=== PATIENT | female | born 1960 | race Two or more races ===

== ENCOUNTER 2024-11-08 08:50 | Outpatient (AMB) | payer MEDICARE, MEDICAID, SELFPAY ==
--- NOTE | 2024-11-08 09:19 | PD.ORTHCLVIS ---
Vital signs 11/08/24 09:20 Height 1.63 m Height Method Stated Weight 79.974 kg Weight Measurement Method Standing Scale BMI 30.2 BP 175/80 H Blood Pressure Source Automatic Cuff Blood Pressure Location Left Upper Arm Position Sitting Respiration 18 Pulse 90 Pulse Source Monitor Temp 98.0 F Temp Source Temporal Artery Scan Pulse Oximetry (%) 97 Oxygen Delivery Method Room Air Med/Allergies Allergies & Medications Allergies No Known Allergies Allergy (Verified 11/08/24 09:21) Medication Reconciliation Unobtainable 11/08/24 [History Confirmed 11/08/24] Exam Exam Breathing is nonlabored. Patient has a normal mood and affect. Bilateral extremities were evaluated and demonstrates sensation intact to light touch. Palpable pedal pulses are present. No significant edema is present. Bilateral hips were examined. The patient has no pain with log roll of the hips. Internal rotation to 30 degrees and external rotation to 30 degrees is painless. Negative FADIR. Left knee was examined today. Incision is clean dry intact and range of motion is 0 to 100 degrees The right knee was also examined. The right knee is in varus alignment. Range of motion from 0-115 degrees. Knee is stable to varus and valgus as well as AP translation with <5mm. Patient has a negative McMurrays. There is no pain with patellofemoral compression and no crepitus noted. The knee is tender to palpation medially. X-rays demonstrate complete obliteration of the medial joint space with osteophytes and varus deformity Assessment and Plan Problem List (1) Arthritis of right knee: Status: Acute Plan: Patient is a 64-year-old female with right knee pain and severe right knee arthritis. We discussed different treatment options. She has significant arthritis of the right knee and has failed conservative treatment. She has failed anti-inflammatories and physical therapy. We thus discussed total knee replacement as a reasonable option on the right. She had her left knee replaced and is insistent that there is no metal in it. We will get x-rays of this as well as I am pretty sure she had a total knee replacement. The nature and purpose of the total knee replacement, alternative method(s) of treatment, the material risks involved, and the possibility of complications were fully explained to the patient. The patient does NOT have any of the following contraindications to TKA: - Active infection of the knee joint, OR - Active systemic bacteremia, OR - Active skin infection or open wound at surgical site, OR - Neuropathic arthritis, OR - Severe, rapidly progressive neurological disease, OR - Severe medical condition that makes risks of surgery outweigh the potential benefit The patient was told the most common risks and complications associated with a total knee replacement include, but are not limited to: blood clots in the leg, fatal pulmonary embolism, dislocation of the prosthesis, intraoperative and postoperative fractures of the femur or tibia, infection, failure of the prosthesis or grafting materials, complications from anesthesia, reactions to blood transfusions, postoperative leg length inequality, instability of the knee replacement, nerve damage or injury, vascular injury, delayed wound healing, infection, other injury or even . In addition, there are risks associated with anesthesia given during this operation. Also, the patient was told that after undergoing a total knee replacement there may still be persistent pain or disability. The patient was informed that the success of this operation in part depends upon the mechanical devices which are going to be implanted and that these devices can fail or malfunction, and may need to be repaired or replaced and there are no guarantees as to the longevity of this device or its parts and that it or its parts could fail prematurely. The patient was also notified that during the course of surgery, there may be a need to use bone graft from donors, and that any bone graft used will be carefully screened for communicable diseases, including AIDS, hepatitis, Manny-Creutzfeldt, or other diseases, but despite the screening procedures, there is a small chance that they could contract one of these diseases. Finally, the patient was asked to follow completely and fully with all advice and recommended treatments, and that recovery and ultimate outcome are affected by their compliance with recommended treatment. We discussed the risks, benefits and treatment alternatives, and the patient is interested in proceeding with surgery. We will try to set this up as expeditiously as possible. 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 ([id number]) MA Intake Visit Data Collection New Patient or Established: New Patient (never been to [facility]) Reason for Visit:: RIGHT KNEE PAIN Seen by Clinical Staff ONLY (RN/MA): No Gun Synchronizer Required: Yes PCP or OBGYN visit in last 3 months: Yes Hx Now: No Do You Feel Safe at Home: Yes Authorities Contacted: N/A Questionairres Past Medical History Past Medical History Have you ever been diagnosed with any of the following: Cardiology Problems Hypertension: Yes Respiratory Problems Smoking: No Smoking Exposure: No Surgical History Total Knee Replacement: Yes (LEFT KNEE 30 YEARS AGO) Subjective Visit Visit for: new patient and knee (RIGHT) Immunization / Flu Flu Vaccine in the Last 12 Months: No Flu Vaccine Exclusion Criteria: Refused by Patient History of Present Illness Chief complaint: right knee pain Date of injury / onset of symptoms: 20 YEARS Patient is a 64-year-old female with right knee pain has been ongoing for over 10 years. She has tried anti-inflammatories and physical therapy. The pain is affecting her quality life and happiness. She had her left knee replaced 30 years ago in [place]. She reports that the left knee does not hurt at all. She reports the right knee is limiting her and she wants to get surgery. Personal History Occupation: RETIRED Pain Pain level (0-10): 9 Pain duration: ALL DAY Pain location: inside (medial) and anterior Pain quality: sharp, dull and aching Pain timing: night, increases with activity and stairs Associated signs & symptoms: stiffness Ambulatory data Ambulatory device: none Treatments Improvement with previous injections: No Number of Physical Therapy sessions: 10 Improvement with PT: Yes Improvement with NSAIDS: no Review of Systems Review of Systems: All systems negative unless otherwise noted in HPI.
[2024-11-08 09:20] VITALS: BP 175/80; PULSE 90; RESP 18; TEMP 36.7; O2SAT 97; BMI 30.2
--- NOTE | 2024-11-08 09:24 | XR_ITS ---
Examination: Bilateral knees 2 views Right lateral knee left lateral knee 2 views Bilateral axial knees single view TECHNIQUE: Bilateral AP knees standing single view, bilateral PA knees standing single view flexion Standing right lateral knee left lateral knee 2 views Bilateral axial knees single view Exam date and time: November 08, 2024 0954 hours INDICATIONS: Right knee pain 20 years. FINDINGS: Prominent osteopenia Severe right knee tricompartment osteoarthritis including [id number] narrowing medial joint space No fracture Total left knee arthroplasty with satisfactory alignment IMPRESSION: Severe right knee tricompartment osteoarthritis
== END 2024-11-08 09:31 | disposition home or self-care (01) ==
LOC: HODSRG 08:50
PROVIDERS: PCP Family Medicine; Referring Provider Family Medicine; Supervising Provider Orthopaedic Surgery Adult Reconstructive Orthopaedic Surgery; Visit Provider Orthopaedic Surgery Adult Reconstructive Orthopaedic Surgery
DX: M17.11 Unilateral primary osteoarthritis, right knee (principal); Z96.652 Presence of left artificial knee joint; I10 Essential (primary) hypertension
CPT/HCPCS: 73564; 99204; G0463

== ENCOUNTER 2024-12-01 14:34 | Outpatient (AMB) | payer MEDICARE, MEDICAID, SELFPAY ==
[2024-12-01 14:58] VITALS: BP 161/80; PULSE 72; RESP 18; TEMP 36.7; O2SAT 97; BMI 29.9
--- NOTE | 2024-12-01 14:58 | PD.ORTHCLVIS ---
Vital signs 12/01/24 14:58 Height 1.63 m Height Method Stated Weight 79.464 kg Weight Measurement Method Standing Scale BMI 29.9 BP 161/80 H Blood Pressure Source Automatic Cuff Blood Pressure Location Right Upper Arm Position Sitting Respiration 18 Pulse 72 Pulse Source Monitor Temp 98.1 F Temp Source Temporal Artery Scan Pulse Oximetry (%) 97 Oxygen Delivery Method Room Air Med/Allergies Allergies & Medications Allergies No Known Allergies Allergy (Verified 12/01/24 14:59) Medication Reconciliation Unobtainable 11/08/24 [History Confirmed 12/01/24] Exam Exam Breathing is nonlabored. Patient has a normal mood and affect. Bilateral extremities were evaluated and demonstrates sensation intact to light touch. Palpable pedal pulses are present. No significant edema is present. Bilateral hips were examined. The patient has no pain with log roll of the hips. Internal rotation to 30 degrees and external rotation to 30 degrees is painless. Negative FADIR. Left knee was examined today. Incision is clean dry intact and range of motion is 0 to 100 degrees The right knee was also examined. The right knee is in varus alignment. Range of motion from 0-115 degrees. Knee is stable to varus and valgus as well as AP translation with <5mm. Patient has a negative McMurrays. There is no pain with patellofemoral compression and no crepitus noted. The knee is tender to palpation medially. X-rays demonstrate complete obliteration of the medial joint space with osteophytes and varus deformity Assessment and Plan Problem List (1) Arthritis of right knee: Status: Acute Plan: Patient is a 64-year-old female with right knee pain and severe right knee arthritis. We discussed different treatment options. She has significant arthritis of the right knee and has failed conservative treatment. She has failed anti-inflammatories and physical therapy. We thus discussed total knee replacement as a reasonable option on the right. The nature and purpose of the total knee replacement, alternative method(s) of treatment, the material risks involved, and the possibility of complications were fully explained to the patient. The patient does NOT have any of the following contraindications to TKA: - Active infection of the knee joint, OR - Active systemic bacteremia, OR - Active skin infection or open wound at surgical site, OR - Neuropathic arthritis, OR - Severe, rapidly progressive neurological disease, OR - Severe medical condition that makes risks of surgery outweigh the potential benefit The patient was told the most common risks and complications associated with a total knee replacement include, but are not limited to: blood clots in the leg, fatal pulmonary embolism, dislocation of the prosthesis, intraoperative and postoperative fractures of the femur or tibia, infection, failure of the prosthesis or grafting materials, complications from anesthesia, reactions to blood transfusions, postoperative leg length inequality, instability of the knee replacement, nerve damage or injury, vascular injury, delayed wound healing, infection, other injury or even . In addition, there are risks associated with anesthesia given during this operation. Also, the patient was told that after undergoing a total knee replacement there may still be persistent pain or disability. The patient was informed that the success of this operation in part depends upon the mechanical devices which are going to be implanted and that these devices can fail or malfunction, and may need to be repaired or replaced and there are no guarantees as to the longevity of this device or its parts and that it or its parts could fail prematurely. The patient was also notified that during the course of surgery, there may be a need to use bone graft from donors, and that any bone graft used will be carefully screened for communicable diseases, including AIDS, hepatitis, Manny-Creutzfeldt, or other diseases, but despite the screening procedures, there is a small chance that they could contract one of these diseases. Finally, the patient was asked to follow completely and fully with all advice and recommended treatments, and that recovery and ultimate outcome are affected by their compliance with recommended treatment. We discussed the risks, benefits and treatment alternatives, and the patient is interested in proceeding with surgery. We will try to set this up as expeditiously as possible. Advanced Care Planning Discussion Advance care planning discussed with:: patient Office Procedures GNS Level of Care Nursing/Assessment Patient Status: Established Patient Nursing Assessment/Reassesment: Medication Reconciliation, Update PMH in EMR and Vital Signs Coordination of Care: Complex Care and Chronic Disease 1-5, Education Complex Pt/Fam, Consent,records obtained, informed consent, 1 Ins Authorization, Results/Orders obtained and Staff clarify orders Special Needs: Language special needs Established Patient Charge Established Patient Point Assignment: 110 Established Patient Point Charge: EP Level 3 (80-115) MA Intake Visit Data Collection New Patient or Established: Established Patient (seen at [facility] within 3 years) Reason for Visit:: F/U KNEE SURGERY Seen by Clinical Staff ONLY (RN/MA): No Verbal consent obtained for Telemed visit?: No Director Digital Sales Required: Yes PCP or OBGYN visit in last 3 months: Yes Hx Now: No Do You Feel Safe at Home: Yes Authorities Contacted: N/A Questionairres Past Medical History Past Medical History Have you ever been diagnosed with any of the following: Cardiology Problems Hypertension: Yes Respiratory Problems Smoking: No Smoking Exposure: No Surgical History Total Knee Replacement: Yes (LEFT KNEE 30 YEARS AGO) Subjective Visit Visit for: follow up visit Immunization / Flu Flu Vaccine in the Last 12 Months: No Flu Vaccine Exclusion Criteria: No Exclusion Criteria History of Present Illness Chief complaint: F/U KNEE SURGERY Date of injury / onset of symptoms: 20 YEARS Patient is a 64-year-old female with right knee pain has been ongoing for over 10 years. She has tried anti-inflammatories and physical therapy. The pain is affecting her quality life and happiness. She had her left knee replaced 30 years ago in [place]. She reports that the left knee does not hurt at all. She reports the right knee is limiting her and she wants to get surgery. Personal History Occupation: RETIRED Red flag PMH: BMI BMI Counceling provided: Yes Pain Pain level (0-10): 9 Pain duration: ALL DAY Pain location: inside (medial), outside (lateral), anterior and posterior Pain quality: sharp, dull and aching Pain timing: increases with activity Associated signs & symptoms: stiffness Ambulatory data Ambulatory device: cane Treatments Improvement with previous injections: No Number of Physical Therapy sessions: 10 Improvement with PT: No Improvement with NSAIDS: no Review of Systems Review of Systems: All systems negative unless otherwise noted in HPI.
== END 2024-12-01 15:18 | disposition home or self-care (01) ==
LOC: HODSRG 14:34
PROVIDERS: PCP Family Medicine; Referring Provider Family Medicine; Supervising Provider Orthopaedic Surgery Adult Reconstructive Orthopaedic Surgery; Visit Provider Orthopaedic Surgery Adult Reconstructive Orthopaedic Surgery
DX: M17.11 Unilateral primary osteoarthritis, right knee (principal); M25.561 Pain in right knee; I10 Essential (primary) hypertension
CPT/HCPCS: 99213; G0463

== ENCOUNTER → 2024-12-16 | Outpatient (CLI) | payer MEDICARE, MEDICAID, SELFPAY ==
--- NOTE | 2024-12-16 10:47 | XR_ITS ---
Examination: CT right lower extremity, without contrast. 2-D sagittal reconstructions. 2-D coronal reconstructions. 3-D reconstructions. Date and time of exam:December 16, 2024 1255 hours INDICATIONS: Right knee pain beginning several years ago CTDI: vol (mGy):12.6 DLP: (mGycm):927 Technique: Multiple 1.25 mm axial sections of the right lower extremity without intravenous contrast have been obtained. 2-D sagittal and coronal reconstructions have been obtained. 3-D reconstructions have been obtained. Low dose protocols were performed. One or more of the following dose reduction techniques were used; automated exposure control, adjustment of the mA and/or KV according to patient size, use of iterative reconstruction technique. Findings: Moderate osteopenia Mild to moderate narrowing right hip joint No right hip fracture Advanced right knee tricompartment osteoarthritis Severe narrowing medial joint space right knee No fracture No patellar dislocation IMPRESSION: Advanced right knee tricompartment osteoarthritis
== END | disposition home or self-care (01) ==
PROVIDERS: PCP Family Medicine; Referring Provider Orthopaedic Surgery Adult Reconstructive Orthopaedic Surgery; Visit Provider Orthopaedic Surgery Adult Reconstructive Orthopaedic Surgery
DX: M17.11 Unilateral primary osteoarthritis, right knee (principal)
CPT/HCPCS: 73700

== ENCOUNTER 2025-01-02 06:55 | Day surgery (SDC) | payer MEDICARE, MEDICAID, SELFPAY ==
--- NOTE | 2024-12-30 06:20 | EKG_ITS ---
[facility] Test Date: 2024-12-30 Pat Name: MAR BYRD Department: Room: - Gender: Female Control Clerk: [facility] : 1960 Requested By: Collin Andres Order Number: [id number] Reading MD: Collin Andres Measurements Intervals [place] Rate: 79 P: 29 IA: 182 QRS: 30 QRSD: 97 T: 30 QT: 354 QTc: 408 Interpretive Statements SINUS RHYTHM No previous ECG available for comparison /store/S0/[id number]/[id number].pdf
[2024-12-30 09:02] VITALS: BMI 31.1
[2024-12-30 10:50] LABS: Basophils % (Auto) 0 % (0-2.5); Eosinophils # (Auto) 0.1 Thou/mm3 (0.0-0.5); Eosinophils % (Auto) 2 % (0-10); Hematocrit 39.1 % (36.0-46.0); Hemoglobin 13.1 g/dL (12.0-16.0); Immature Granulocytes % (Auto) 0 % (0-0); Immature Granulocytes Auto 0.01 Thou/mm3 (0.00-0.00); Lymphocytes # (Auto) 2.5 Thou/mm3 (1.0-4.8); Lymphocytes % (Auto) 34 % (10-50); Mean Corpuscular HGB Conc 33.5 g/dl (31.0-37.0); Mean Corpuscular Hemoglobin 28.4 pg (25.0-35.0); Mean Corpuscular Volume 85 fL (80-100); Monocytes # (Auto) 0.5 Thou/mm3 (0.0-0.8); Monocytes % (Auto) 7 % (0-12); Neutrophils # (Auto) 4.1 Thou/mm3 (1.8-7.7); Neutrophils % (Auto) 57 % (37-80); Nucleated Red Blood Cell % 0 /100 WBC (0); Platelet Count 236 Thou/mm3 (140-440); RDW Standard Deviation 43.3 fL (36.4-46.3); Red Blood Count 4.61 Miln/mm3 (4.00-5.20); White Blood Count 7.2 Thou/mm3 (3.6-11.0)
[2024-12-30 10:54] LABS: Prothrombin Time 11.1 Seconds (9.0-12.2)
[2024-12-30 11:00] LABS: Alanine Aminotransferase 18 U/L (10-49); Albumin, Serum 4.3 gm/dL (3.4-4.8); Albumin/Globulin Ratio 1.6 (1.2-2.2); Alkaline Phosphatase 154 U/L (46-116); Anion Gap 11 (7-16); Aspartate Amino Transferase 15 U/L (0-34); BUN/Creatinine Ratio 25 Ratio (12-20); Bilirubin,Total 0.4 mg/dL (0.3-1.2); Blood Urea Nitrogen 15 mg/dL (9-23); Calcium 10.3 mg/dL (8.3-10.6); Calcium (Corrected) 10.3 mg/dL (8.5-10.1); Carbon Dioxide 24.8 mMol/L (20.0-31.0); Chloride 107 mMol/L (98-107); Creatinine (Component) 0.6 mg/dL (0.6-1.3); Estimated Creatinine Clearance 92.1 mL/min (>60); Globulin 2.7 gm/dL (2.3-3.5); Glucose 113 mg/dL (74-106); Osmolality,Calculated 286 (275-295); Potassium 3.8 mMol/L (3.4-5.1); Sodium 143 mMol/L (136-145); eGFR > 60 See Note
[2025-01-02] VITALS (10 sets, daily range): BP systolic 110–169; BP diastolic 60–88; PULSE 67–89; RESP 13–20; TEMP 36.6–37; O2SAT 95–100; BMI 30.9
[2025-01-02] MEDS: RINGERS LACTATED 1000 ML 1,000 ML 20 ML IV (07:46)
[2025-01-02] MEDS: PREGABALIN 75 MG CAPSULE PO (07:50)
[2025-01-02] MEDS: MELOXICAM 7.5 MG TABLET PO (07:51)
[2025-01-02] MEDS: ACETAMINOPHEN 325 MG TABLET 650 MG PO (07:51)
--- NOTE | 2025-01-02 07:52 | SUR.PREOP ---
Patient expressed gratitude for prayer before their procedure
--- NOTE | 2025-01-02 11:16 | PD.SUROPNT ---
Date of Procedure 01/02/25 Pre Op Diagnosis right knee osteoarthritis Post Op Diagnosis right knee osteoarthritis Procedure right total knee replacement ruben Findings full thickness cartilage loss and osteophytes Procedure Description Indication: The patient is a 64 year old who has a long history of right knee pain. X-rays show degenerative arthritis involving the knee. Over the past several years the patient has had increasing pain, progressive limitation in function. He has failed conservative measures including activity modification, physical therapy, injections, anti-inflammatories, and assistive devices. After a lengthy discussion of the risks and benefits, the patient presents now for total knee replacement. The nature and purpose of the total knee replacement, alternative method(s) of treatment, the material risks involved, and the possibility of complications were fully explained to the patient. The patient was told the most common risks and complications associated with a total knee replacement include, but are not limited to blood clots in the leg, fatal pulmonary embolism, dislocation of the prosthesis, intraoperative and postoperative fractures of the femur or tibia, infection, failure of the prosthesis or grafting materials, complications from anesthesia, reactions to blood transfusions, postoperative leg length inequality, instability of the knee replacement, nerve damage or injury, vascular injury, delayed wound healing, infections, other injury or even . In addition, there are risks associated with anesthesia given during this operation, temporary or permanent numbness on the skin lateral to the incision can be a complication unique to total knee surgery, and kneeling can be painful after knee replacement surgery. Also, the patient was told that after undergoing a total knee replacement there may still be pain or disability. We discussed with the patient that we will be using a robot-assisted technology. We discussed that there is a possibility of converting to manual instrumentation. The patient was informed that the success of this operation in part depends upon the mechanical devices which are going to be implanted and that these devices can fail or malfunction, and may need to be repaired or replaced and there are no guarantees as to the longevity of this device or its part and that it or its parts could fail prematurely. Finally, the patient was asked to follow completely and fully with all advice and recommended treatments, and that recovery and ultimate outcome are affected by their compliance with recommended treatment. Surgical technique: Patient was marked and consented in the pre-operative area. The patient was brought to the operating room and placed on the operating table in a supine position. Prior to positioning, a timeout procedure was performed between the surgeon, the anesthesiologist, and the nursing staff where the patient and the operative side were identified and confirmed. After adequate general anesthetic was obtained, the right lower extremity was prepped and draped in the usual sterile fashion. A weight based dose of Cefazolin were administered within 1 hour prior to incision. The robot was preregistered and calirated before the incision. The extremity was exsanguinated with an esmarch badge and tourniquet inflated to 250mmHg. A midline incision was made. A median parapatellar arthrotomy was made. The patella was subluxed laterally. A medial release was performed to expose the medial tibia. His femoral and tibial pins were placed through an intra incisional manner for both cases. Every effort was made to ensure that the distalmost aspect of the pin was hung in the second cortex. The arrays were then tightened several times to ensure that it was fixed for the remainder of the case. Both femoral and tibial checkpoints were then placed. We then went through the registration process of the bone. We then assessed the knee deformity and attempted to correct it. We also used the robot to aid in judging laxity in both extension and flexion. Final based on laxity and alignment we changed the preoperative assessment to obtain proper proper implant positioning and to correct deformity. Attention was then placed to the tibia. We made a tibial cut using the robot ensuring that both the MCL and the patella tendon were protected with retractors. We then went to the femur and made the posterior cut followed by the anterior cut and the anterior chamfer. The bone was then removed and we made a distal femur cut and a posterior chamfer cut. We verified all cuts. A trial reduction was performed with a size 4 femoral component and a size 3 keeled tibial component. The patella was cut and sized to a [33]. The patella tracked centrally, and no lateral retinacular release was necessary. The trial implants were removed. The arrays, pins, and checkpoints were all removed. We performed a verification that all pins were removed. The cut bone surfaces were lavaged. A size 4 right femoral component, a size 3 keeled tibial component, and a size 33 patella were impacted into position. The knee was felt to be well balanced in the sagittal and coronal plane. The final 3x11mm cruciate-substituting articular insert was impacted into the tibial tray. The knee was brought out to full extension, flexed up to 120 degrees. It was stable to varus and valgus stress and appropriately balanced in flexion and extension. The wounds were copiously irrigated following deflation of tourniquet. The medial retinaculum was reapproximated with #1 vicryl and quill. The subcutaneous tissues were closed with 0 and 2-0 interrupted Vicryl. The skin was closed with 3-0 Monofilament V loc suture. A sterile dressing was applied. The patient was transferred to a bed and brought to recovery in stable condition. The patient tolerated the procedure well. There were no intraoperative complications. Sponge and needle counts were correct times 2. As the attending surgeon, I attjayne I was present and performed the entire operation. Grafts/Implants Size 4 CR Femur Size 3 Tibia 11mm poly CS 33mm patella Anesthesia spinal Implants dorian Pathology / specimen None Pathology comment: none Estimated Blood Loss 150 Condition Stable Disposition same day Surgeon Jerrod Manjarrez MD Surgical Staff Operation Date: 01/02/25 10:45 Case Staff Anesthesiologist: Noah Cardoza RN First Assistant: Jeane Martinez
--- NOTE | 2025-01-02 11:18 | XR_ITS ---
Examination: Right knee 2 views Technique one AP lateral right knee 2 views Date and time: January 02, 2025 1224 hours INDICATIONS: Postop knee replacement FINDINGS: No right knee arthroplasty. Satisfactory alignment No fracture IMPRESSION: Total right knee arthroplasty with satisfactory alignment
--- NOTE | 2025-01-02 11:40 | SUR.PHASEI ---
pt arrived to PACU via gurney with oral airway present, breathing unlabored, dressing to right lower extremity clean, dry, and intact, circulation to bilateral toes WNL, report from Adria FORTUNE and Dr Cardoza
--- NOTE | 2025-01-02 12:05 | SUR.PHASEI ---
pt tolerating oral fluids without difficulty swallowing or n/v
[2025-01-02] MEDS: ACETAMINOPHEN IVPB 1,000 MG/100 ML VIAL 250 MG IV (12:15)
--- NOTE | 2025-01-02 12:24 | SUR.PHASEII ---
Xray at bedside
--- NOTE | 2025-01-02 12:30 | SUR.PHASEII ---
xray complete, uJan Physical Therapist notified that pt is ready.
--- NOTE | 2025-01-02 12:46 | SUR.PHASEII ---
Juan Physical Therapist at bedside
--- NOTE | 2025-01-02 13:25 | SUR.PHASEII ---
pt awake, alert, able to follow commands, breathing unlabored, dressing to lower right extremity clean, dry, and intact, pulses to bilateral dorsalis pedis present/strong/equal, discharge instructions given using telephone japanese interpreter Rocío ID#[id number] questions answered, pt and family verbalize understanding of discharge isntructions, pt and family informed when Tylenol dose was given and when to take next dose-family and pt verbalize understanding, pt able to ambulate with steady gait and cleared by physical therapist for discharge home, pt discharged via wheelchair with all belongings and copies of discharge paperwork.
== END 2025-01-02 13:25 | disposition home or self-care (01) ==
PROVIDERS: Anesthesiology; Referring Provider Orthopaedic Surgery Adult Reconstructive Orthopaedic Surgery; Visit Provider Orthopaedic Surgery Adult Reconstructive Orthopaedic Surgery
PROC: (CPT 27447; principal; 2025-01-02 10:45)
DX: M17.11 Unilateral primary osteoarthritis, right knee (principal); M25.761 Osteophyte, right knee; Z01.810 Encounter for preprocedural cardiovascular examination
CPT/HCPCS: 27447; 20985; 36415; 73560; 80053; 85025; 85610; 85730; 93005; 97162; A4217; C1713; C1776; J0131; J0690; J1100; J1885; J2250; J2405; J2704; J2795; J3010; J3490; J7120; J7999; A4648; A4649; A9270

== ENCOUNTER 2025-01-17 10:34 | Outpatient (AMB) | payer MEDICARE, MEDICAID, SELFPAY ==
--- NOTE | 2025-01-17 11:09 | PD.ORTHCLVIS ---
Vital signs 01/17/25 11:10 Height 1.6 m Height Method Stated Weight 78.046 kg Weight Measurement Method Standing Scale BMI 30.4 BP 178/69 H Blood Pressure Source Automatic Cuff Blood Pressure Location Left Upper Arm Position Sitting Respiration 18 Pulse 98 Pulse Source Monitor Temp 97.8 F Temp Source Temporal Artery Scan Pulse Oximetry (%) 95 Oxygen Delivery Method Room Air Med/Allergies Allergies & Medications Allergies No Known Allergies Allergy (Verified 01/17/25 11:10) Medication Reconciliation amlodipine 5 mg tablet 5 mg PO QDAY 12/30/24 [History Confirmed 01/17/25] losartan 100 mg tablet 100 mg PO QDAY 12/30/24 [History Confirmed 01/17/25] acetaminophen 500 mg tablet (Acetaminophen Extra Strength) 1,000 mg (2 x 500 mg) PO Q6H PRN pain #90 tabs 01/02/25 [Rx Confirmed 01/17/25] aspirin 81 mg tablet,delayed release 81 mg PO BID #60 tabs 01/02/25 [Rx Confirmed 01/17/25] doxycycline hyclate 100 mg tablet 100 mg PO BID #14 tabs 01/02/25 [Rx Confirmed 01/17/25] gabapentin 300 mg capsule 300 mg PO .qhs #30 caps 01/02/25 [Rx Confirmed 01/17/25] oxycodone 5 mg tablet 5 mg PO Q6H PRN pain #28 tabs 01/02/25 [Rx Confirmed 01/17/25] sennosides 8.6 mg-docusate sodium 50 mg tablet (Senna-S) 1 tab-cap PO QDAY #30 tabs 01/02/25 [Rx Confirmed 01/17/25] Exam Exam Breathing is nonlabored. Patient has a normal mood and affect. Bilateral extremities were evaluated and demonstrates sensation intact to light touch. Palpable pedal pulses are present. No significant edema is present. Bilateral hips were examined. The patient has no pain with log roll of the hips. Internal rotation to 30 degrees and external rotation to 30 degrees is painless. Negative FADIR. Left knee was examined today. Incision is clean dry intact and range of motion is 0 to 100 degrees Right knee incisions clean dry intact. Range of motion 0 to 105 degrees Assessment and Plan Problem List (1) Arthritis of right knee: Status: Acute Plan: Patient is a 64-year-old female with right knee pain and severe right knee arthritis. She is status post right total knee replacement and is doing well. She has minimal pain (2) Status post total right knee replacement: Status: Acute Advanced Care Planning Discussion Advance care planning discussed with:: patient Office Procedures GNS Level of Care Nursing/Assessment Patient Status: Established Patient Nursing Assessment/Reassesment: Medication Reconciliation, Update PMH in EMR and Vital Signs Coordination of Care: Complex Care and Chronic Disease 1-5, Education Complex Pt/Fam, Consent,records obtained, informed consent, Results/Orders obtained and Staff clarify orders Special Needs: Language special needs Established Patient Charge Established Patient Point Assignment: 95 Established Patient Point Charge: Level 3 (80-115) MA Intake Visit Data Collection New Patient or Established: Established Patient (seen at [facility] within 3 years) Reason for Visit:: FOLLOW UP Seen by Clinical Staff ONLY (RN/MA): No Client Services Associate Required: Yes PCP or OBGYN visit in last 3 months: Yes Hx Now: No Do You Feel Safe at Home: Yes Authorities Contacted: N/A Questionairres Past Medical History Past Medical History Have you ever been diagnosed with any of the following: Neurological Problems Seizures: No Cardiology Problems Congestive Heart Failure: No Hypertension: Yes Varicose Veins: Yes Respiratory Problems Chronic Obstructive Pulmonary Disease (COPD): No Smoking: No Smoking Exposure: No Stomache/Intestinal Problems Hepatitis: No Genital/Urinary Problems Renal Disease: No Reproductive Problems Previous Pregnancies: Yes (5) Musculoskeletal Problems Arthritis: Yes Endocrine Problems Diabetes Mellitus Type 1: No Diabetes Mellitus Type 2: No Other Problems Hospitalization: No Shingles: No Blood Transfusions: No Anesthesia Reactions: No Cancer: No Surgical History Total Knee Replacement: Yes (LEFT KNEE 30 YEARS AGO) Hysterectomy: Yes Subjective Visit Visit for: follow up visit Immunization / Flu Flu Vaccine in the Last 12 Months: No Flu Vaccine Exclusion Criteria: No Exclusion Criteria History of Present Illness Chief complaint: F/U KNEE SURGERY Date of injury / onset of symptoms: 20 YEARS Patient is a 64-year-old female with right knee pain has been ongoing for over 10 years. She is status post right total knee replacement and is very happy. She is 2 weeks postop Personal History Occupation: RETIRED Red flag PMH: BMI BMI Counceling provided: Yes Pain Pain level (0-10): 9 Pain duration: ALL DAY Pain location: inside (medial), outside (lateral), anterior and posterior Pain quality: sharp, dull and aching Pain timing: increases with activity Associated signs & symptoms: stiffness Ambulatory data Ambulatory device: cane and walker Treatments Improvement with previous injections: No Number of Physical Therapy sessions: 10 Improvement with PT: No Improvement with NSAIDS: no Review of Systems Review of Systems: All systems negative unless otherwise noted in HPI.
[2025-01-17 11:10] VITALS: BP 178/69; PULSE 98; RESP 18; TEMP 36.6; O2SAT 95; BMI 30.4
== END 2025-01-17 11:16 | disposition home or self-care (01) ==
PROVIDERS: PCP Family Medicine; Referring Provider Family Medicine; Supervising Provider Orthopaedic Surgery Adult Reconstructive Orthopaedic Surgery; Visit Provider Orthopaedic Surgery Adult Reconstructive Orthopaedic Surgery
DX: M17.11 Unilateral primary osteoarthritis, right knee (principal); M25.561 Pain in right knee; Z96.651 Presence of right artificial knee joint; I10 Essential (primary) hypertension
CPT/HCPCS: 99213; G0463

== ENCOUNTER 2025-02-14 09:23 | Outpatient (AMB) | payer MEDICARE, MEDICAID, SELFPAY ==
--- NOTE | 2025-02-14 09:28 | ORTHONT_ITS ---
Vital signs 02/14/25 09:29 Height 1.6 m Height Method Stated Weight 78.953 kg Weight Measurement Method Standing Scale BMI 30.8 BP 156/69 H Blood Pressure Source Automatic Cuff Blood Pressure Location Left Upper Arm Position Sitting Respiration 18 Pulse 83 Pulse Source Monitor Temp 98.3 F Temp Source Temporal Artery Scan Pulse Oximetry (%) 96 Oxygen Delivery Method Room Air Med/Allergies Allergies & Medications Allergies No Known Allergies Allergy (Verified 02/14/25 09:29) Medication Reconciliation amlodipine 5 mg tablet 5 mg PO QDAY 12/30/24 [History Confirmed 02/14/25] losartan 100 mg tablet 100 mg PO QDAY 12/30/24 [History Confirmed 02/14/25] acetaminophen 500 mg tablet (Acetaminophen Extra Strength) 1,000 mg (2 x 500 mg) PO Q6H PRN pain #90 tabs 01/02/25 [Rx Confirmed 02/14/25] aspirin 81 mg tablet,delayed release 81 mg PO BID #60 tabs 01/02/25 [Rx Confirmed 02/14/25] doxycycline hyclate 100 mg tablet 100 mg PO BID #14 tabs 01/02/25 [Rx Confirmed 02/14/25] gabapentin 300 mg capsule 300 mg PO .qhs #30 caps 01/02/25 [Rx Confirmed 02/14/25] oxycodone 5 mg tablet 5 mg PO Q6H PRN pain #28 tabs 01/02/25 [Rx Confirmed 02/14/25] sennosides 8.6 mg-docusate sodium 50 mg tablet (Senna-S) 1 tab-cap PO QDAY #30 tabs 01/02/25 [Rx Confirmed 02/14/25] Exam Exam Breathing is nonlabored. Patient has a normal mood and affect. Bilateral extremities were evaluated and demonstrates sensation intact to light touch. Palpable pedal pulses are present. No significant edema is present. Bilateral hips were examined. The patient has no pain with log roll of the hips. Internal rotation to 30 degrees and external rotation to 30 degrees is painless. Negative FADIR. Left knee was examined today. Incision is clean dry intact and range of motion is 0 to 100 degrees Right knee incisions clean dry intact. Range of motion 0 to 105 degrees Assessment and Plan Problem List (1) Status post total right knee replacement: Status: Acute (2) Arthritis of right knee: Status: Acute Plan: Patient is a 64-year-old female with right knee pain and severe right knee arthritis. She is status post right total knee replacement and is doing well. She has minimal pain We will see her back in 6 weeks for routine followup with xrays Advanced Care Planning Discussion Advance care planning discussed with:: patient Office Procedures GNS Level of Care Nursing/Assessment Patient Status: Established Patient Nursing Assessment/Reassesment: Medication Reconciliation, Update PMH in EMR and Vital Signs Coordination of Care: Complex Care and Chronic Disease 1-5, Education Complex Pt/Fam, Consent,records obtained, informed consent, Results/Orders obtained and Staff clarify orders Special Needs: Language special needs Established Patient Charge Established Patient Point Assignment: 95 Established Patient Point Charge: EP Level 3 (80-115) MA Intake Visit Data Collection New Patient or Established: Established Patient (seen at [facility] within 3 years) Reason for Visit:: FOLLOW UP 6WK TKA Seen by Clinical Staff ONLY (RN/MA): No Performance Improvement Coordinator Required: Yes PCP or OBGYN visit in last 3 months: Yes Hx Now: No Do You Feel Safe at Home: Yes Authorities Contacted: N/A Questionairres Past Medical History Past Medical History Have you ever been diagnosed with any of the following: Neurological Problems Seizures: No Cardiology Problems Congestive Heart Failure: No Hypertension: Yes Varicose Veins: Yes Respiratory Problems Chronic Obstructive Pulmonary Disease (COPD): No Smoking: No Smoking Exposure: No Stomache/Intestinal Problems Hepatitis: No Genital/Urinary Problems Renal Disease: No Reproductive Problems Previous Pregnancies: Yes (5) Musculoskeletal Problems Arthritis: Yes Endocrine Problems Diabetes Mellitus Type 1: No Diabetes Mellitus Type 2: No Other Problems Hospitalization: No Shingles: No Blood Transfusions: No Anesthesia Reactions: No Cancer: No Surgical History Total Knee Replacement: Yes (LEFT KNEE 30 YEARS AGO) Hysterectomy: Yes Subjective Visit Visit for: follow up visit and knee Immunization / Flu Flu Vaccine in the Last 12 Months: No Flu Vaccine Exclusion Criteria: No Exclusion Criteria History of Present Illness Chief complaint: F/U KNEE SURGERY Date of injury / onset of symptoms: 20 YEARS Patient is a 64-year-old female with right knee pain has been ongoing for over 10 years. She is status post right total knee replacement and is very happy. She is 6 weeks postop Personal History Occupation: RETIRED Red flag PMH: BMI BMI Counceling provided: Yes Pain Pain level (0-10): 9 Pain duration: ALL DAY Pain location: inside (medial), outside (lateral), anterior and posterior Pain quality: sharp, dull and aching Pain timing: increases with activity Associated signs & symptoms: stiffness Ambulatory data Ambulatory device: cane and walker Treatments Improvement with previous injections: No Number of Physical Therapy sessions: 10 Improvement with PT: No Improvement with NSAIDS: no Review of Systems Review of Systems: All systems negative unless otherwise noted in HPI.
[2025-02-14 09:29] VITALS: BP 156/69; PULSE 83; RESP 18; TEMP 36.8; O2SAT 96; BMI 30.8
--- NOTE | 2025-02-14 09:48 | XR_ITS ---
Examination: Bilateral AP knees single view Right knee PA lateral axial 3 views TECHNIQUE: Bilateral AP knees standing single view Right knee PA flexion standing, lateral standing, axial right knee 3 views total 4 views Date and time: February 14, 2025 1003 hours INDICATIONS: Right knee pain, knee replacement January 12, 2025. FINDINGS: Moderate osteopenia Bilateral total knee arthroplasties. Satisfactory alignment No patellar dislocation IMPRESSION: Bilateral total knee of the biceps is with satisfactory alignment No fractures No loosening of the prosthetic components
== END 2025-02-14 09:55 | disposition home or self-care (01) ==
LOC: HODSRG 09:23
PROVIDERS: PCP Family Medicine; Referring Provider Family Medicine; Supervising Provider Orthopaedic Surgery Adult Reconstructive Orthopaedic Surgery; Visit Provider Orthopaedic Surgery Adult Reconstructive Orthopaedic Surgery
DX: Z96.651 Presence of right artificial knee joint (principal); M17.11 Unilateral primary osteoarthritis, right knee; M25.561 Pain in right knee; I10 Essential (primary) hypertension
CPT/HCPCS: 73564; 99213; G0463

== ENCOUNTER 2025-03-28 14:51 | Outpatient (AMB) | payer MEDICARE, MEDICAID, SELFPAY ==
--- NOTE | 2025-03-28 15:10 | PD.ORTHCLVIS ---
Vital signs 03/28/25 15:11 Height 1.6 m Height Method Stated Weight 79.152 kg Weight Measurement Method Standing Scale BMI 30.9 BP 151/81 H Blood Pressure Source Automatic Cuff Blood Pressure Location Left Upper Arm Position Sitting Respiration 19 Pulse 81 Pulse Source Monitor Temp 97.8 F Temp Source Temporal Artery Scan Pulse Oximetry (%) 97 Oxygen Delivery Method Room Air Med/Allergies Allergies & Medications Allergies No Known Allergies Allergy (Verified 03/28/25 15:11) Medication Reconciliation amlodipine 5 mg tablet 5 mg PO QDAY 12/30/24 [History Confirmed 03/28/25] losartan 100 mg tablet 100 mg PO QDAY 12/30/24 [History Confirmed 03/28/25] acetaminophen 500 mg tablet (Acetaminophen Extra Strength) 1,000 mg (2 x 500 mg) PO Q6H PRN pain #90 tabs 01/02/25 [Rx Confirmed 03/28/25] aspirin 81 mg tablet,delayed release 81 mg PO BID #60 tabs 01/02/25 [Rx Confirmed 03/28/25] doxycycline hyclate 100 mg tablet 100 mg PO BID #14 tabs 01/02/25 [Rx Confirmed 03/28/25] gabapentin 300 mg capsule 300 mg PO .qhs #30 caps 01/02/25 [Rx Confirmed 03/28/25] oxycodone 5 mg tablet 5 mg PO Q6H PRN pain #28 tabs 01/02/25 [Rx Confirmed 03/28/25] sennosides 8.6 mg-docusate sodium 50 mg tablet (Senna-S) 1 tab-cap PO QDAY #30 tabs 01/02/25 [Rx Confirmed 03/28/25] Exam Exam Breathing is nonlabored. Patient has a normal mood and affect. Bilateral extremities were evaluated and demonstrates sensation intact to light touch. Palpable pedal pulses are present. No significant edema is present. Bilateral hips were examined. The patient has no pain with log roll of the hips. Internal rotation to 30 degrees and external rotation to 30 degrees is painless. Negative FADIR. Left knee was examined today. Incision is clean dry intact and range of motion is 0 to 100 degrees Right knee incisions clean dry intact. Range of motion 0 to 105 degrees Assessment and Plan Problem List (1) Status post total right knee replacement: Status: Acute (2) Arthritis of right knee: Status: Acute Plan: Patient is a 64-year-old female with right knee pain and severe right knee arthritis. She is status post right total knee replacement and is doing well. She has minimal pain We will see her back in approximately 6 to 9 months. (3) Status post total right knee replacement: Status: Acute (4) Arthritis of right knee: Status: Acute Advanced Care Planning Discussion Advance care planning discussed with:: patient Office Procedures GNS Level of Care Nursing/Assessment Patient Status: Established Patient Nursing Assessment/Reassesment: Medication Reconciliation, Update PMH in EMR and Vital Signs Coordination of Care: Complex Care and Chronic Disease 1-5, Education Complex Pt/Fam, Consent,records obtained, informed consent, Results/Orders obtained and Staff clarify orders Special Needs: Language special needs Established Patient Charge Established Patient Point Assignment: 95 Established Patient Point Charge: EP Level 3 (80-115) MA Intake Visit Data Collection New Patient or Established: Established Patient (seen at [facility] within 3 years) Reason for Visit:: FOLLOW UP 6WK TKA Seen by Clinical Staff ONLY (RN/MA): No Customer Manager Required: Yes PCP or OBGYN visit in last 3 months: Yes Hx Now: No Do You Feel Safe at Home: Yes Authorities Contacted: N/A Questionairres Past Medical History Past Medical History Have you ever been diagnosed with any of the following: Neurological Problems Seizures: No Cardiology Problems Congestive Heart Failure: No Hypertension: Yes Varicose Veins: Yes Respiratory Problems Chronic Obstructive Pulmonary Disease (COPD): No Smoking: No Smoking Exposure: No Stomache/Intestinal Problems Hepatitis: No Genital/Urinary Problems Renal Disease: No Reproductive Problems Previous Pregnancies: Yes (5) Musculoskeletal Problems Arthritis: Yes Endocrine Problems Diabetes Mellitus Type 1: No Diabetes Mellitus Type 2: No Other Problems Hospitalization: No Shingles: No Blood Transfusions: No Anesthesia Reactions: No Cancer: No Surgical History Total Knee Replacement: Yes (LEFT KNEE 30 YEARS AGO) Hysterectomy: Yes Subjective Visit Visit for: follow up visit and knee Immunization / Flu Flu Vaccine in the Last 12 Months: No Flu Vaccine Exclusion Criteria: No Exclusion Criteria History of Present Illness Chief complaint: F/U KNEE SURGERY Date of injury / onset of symptoms: 20 YEARS Patient is a 64-year-old female with right knee pain has been ongoing for over 10 years. She is status post right total knee replacement and is very happy. She is 12 weeks postop Personal History Occupation: RETIRED [employer]: BMI BMI Counceling provided: Yes Pain Pain level (0-10): 9 Pain duration: ALL DAY Pain location: inside (medial), outside (lateral), anterior and posterior Pain quality: sharp, dull and aching Pain timing: increases with activity Associated signs & symptoms: stiffness Ambulatory data Ambulatory device: cane and walker Treatments Improvement with previous injections: No Number of Physical Therapy sessions: 10 Improvement with PT: No Improvement with NSAIDS: no Review of Systems Review of Systems: All systems negative unless otherwise noted in HPI.
[2025-03-28 15:11] VITALS: BP 151/81; PULSE 81; RESP 19; TEMP 36.6; O2SAT 97; BMI 30.9
== END 2025-03-28 15:14 | disposition home or self-care (01) ==
LOC: HODSRG 14:51
PROVIDERS: PCP Family Medicine; Referring Provider Family Medicine; Supervising Provider Orthopaedic Surgery Adult Reconstructive Orthopaedic Surgery; Visit Provider Orthopaedic Surgery Adult Reconstructive Orthopaedic Surgery
DX: Z96.651 Presence of right artificial knee joint (principal); M17.11 Unilateral primary osteoarthritis, right knee; M25.561 Pain in right knee; I10 Essential (primary) hypertension
CPT/HCPCS: 99213; G0463